=== PATIENT | male | born 1945 | race Caucasian/White ===

== ENCOUNTER 2017-02-26 11:17 | Outpatient (CLI) | payer MEDICARE ==
--- NOTE | 2017-02-26 14:41 | RAD ---
RIGHT HIP 2 VIEWS: Date: 02/26/17 HISTORY: M25.559. COMPARISON: None. FINDINGS: No acute fracture or malalignment. 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 There are acetabular osteophytes. Multiple surgical clips in the pelvis. There is a calcified granuloma projecting over t he right hemipelvis. IMPRESSION: No acute fracture or malalignment. POS: [facility]
--- NOTE | 2017-02-26 14:50 | RAD ---
THREE VIEWS LUMBAR SPINE: 02/26/2017 HISTORY: Follow-up post surgical changes. COMPARISON: 11/20/2016 FINDINGS: Again noted are post-surgical changes related to posterior fusion of the L4-5 level. No hardware co mplication is seen. Grade I anterolisthesis of L4 and L5 is again seen and overall similar to the p rior exam. There is slight retrolisthesis of L1 on L2 and L2 on L3. Multilevel degenerative change s are again present in the remainder of the intervertebral disk spaces at all levels and multilevel osteophyte changes as well as endplate degenerative changes most prominent at the L2-3 level. No fr acture is seen. Laminectomy defects are seen involving the lower lumbar spine. Vascular calcificat ions are seen in the abdominal aorta and iliac arteries. No other interval change. IMPRESSION: 1. Stable post-surgical changes at the L4-5 level related to posterior fusion. There is also stable degree of grade I anterolisthesis of L4 on L5. 2. Multilevel degenerative changes in the lumbar spine. 3. Moderate increased density focus overlying the right sacroiliac joint which may be related to ing ested material within bowel. This was not seen on the prior study and also appears to change positi ons on the two views of the right hip also obtained on this date, again likely due to ingested mater ial within bowel. POS: [facility]
== END 2017-02-26 11:18 | disposition home or self-care (01) ==
LOC: TBSIIMAG 11:17
PROVIDERS: ATTEND Neurological Surgery
DX: M25.559 Pain in unspecified hip (principal); M47.816 Spondylosis without myelopathy or radiculopathy, lumbar region; M43.16 Spondylolisthesis, lumbar region; Z98.890 Other specified postprocedural states
CPT/HCPCS: 72100